=== PATIENT | female | born 1995 | race Caucasian/White ===

== ENCOUNTER 2021-08-15 11:33 | Emergency (ER) | payer BC, SELFPAY ==
[2021-08-15 11:36] VITALS: BP 148/96; PULSE 97; RESP 20; TEMP 36.3; O2SAT 100
--- NOTE | 2021-08-15 11:55 | PC.NURSE ---
RN assisted with DIRECTOR OF [employer] rectal exam.
--- NOTE | 2021-08-15 11:59 | ED.GIBLEED ---
HPI - GI Bleed General Chief complaint: GI Bleed Stated complaint: bloody vagina Time Seen by Provider: 08/15/21 11:51 History of Present Illness HPI Narrative: 25-year-old female presents the emergency room with acute onset of hematochezia. Patient states that she noticed bright red blood on her toilet paper and couple of drops in the toilet after having a bowel movement. Patient denies any rectal pain, or abdominal pain. Patient states she spends 10 to 15 minutes at a time on the toilet when she is having a bowel movement. Related Data Home Medications Medication Instructions Recorded Confirmed doxycycline monohydrate PO 08/15/21 Allergies Allergy/AdvReac Type Severity Reaction Status Date / Time No Known Allergies Allergy Verified 08/15/21 11:42 Review of Systems Review of Systems: CONSTITUTIONAL: Denies fever, chills, or sweats. EYES: Denies visual changes, redness, or discharge. ENT: Denies rhinorrhea, congestion, sore throat, or otalgia. CARDIOVASCULAR: Denies chest pain, palpitations, or edema. RESPIRATORY: Denies cough or dyspnea. GASTROINTESTINAL: Denies abdominal pain, nausea, vomiting, or diarrhea. Reports bright red rectal bleed GENITOURINARY: Denies dysuria or hematuria. SKIN: Denies rash or itching. MUSCULOSKELETAL: Denies back pain, joint pain, or myalgia. NEUROLOGIC: Denies headache, numbness, dizziness, or weakness. PSYCHIATRIC: Denies anxiety or depression. [facility], LAT[facility] Past Medical History Medical History BMI 29.0-29.9,adult BMI 32.0-32.9,adult Dietary counseling and surveillance (10/09/15) Routine physical examination Family History Family History Father Hypertension Hyperlipemia Basal cell carcinoma Mother H/O: hysterectomy Sibling No problems noted. 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 Gender identity (if verbalized by the patient): Female Exam Narrative: GENERAL: Well-appearing, well-nourished, and in no acute distress. HEAD: Normocephalic, atraumatic. EYES: PERRLA and EOMI. ENT: Nares clear, no rhinorrhea or epistaxis. Mucous membranes moist. NECK: Supple. No adenopathy or masses. No carotid bruits or JVD CHEST: Clear to auscultation. No respiratory distress. No wheezes rales or rhonchi HEART: Regular rate and rhythm. No murmur heard. Normal peripheral pulses. ABDOMEN: Soft, nontender, nondistended, normal active bowel sounds. X2 small external hemorrhoids EXTREMITIES: Normal range of motion. No edema. SKIN: Warm, dry, no rash. NEURO: No focal deficits. Alert and oriented x3. PSYCH: Normal mood and affect. Course Vital Signs Vital signs: Vital Signs Temperature 36.3 C L 08/15/21 11:36 Pulse Rate 97 08/15/21 11:36 Respiratory Rate 20 08/15/21 11:36 Blood Pressure 148/96 H 08/15/21 11:36 Pulse Oximetry 100 08/15/21 11:36 Temperature 36.3 C L 08/15/21 11:36 Pulse Rate 97 08/15/21 11:36 Respiratory Rate 20 08/15/21 11:36 Blood Pressure 148/96 H 08/15/21 11:36 Pulse Oximetry 100 08/15/21 11:36 Discharge Plan Discharge Clinical Impression: Hemorrhoids Qualifiers: Hemorrhoid type: unspecified Qualified Code(s): K64.9 - Unspecified hemorrhoids Patient Disposition: Home, Self-Care Condition: Stable Instructions: Antibiotic Form, Hemorrhoids (ED) Additional Instructions: Recommend an [id number] stool softener such as MiraLAX or docusate sodium. Also recommend limiting the amount of time that you use the restroom to no longer than 5 minutes. Prescriptions: Eddie Merino (soheila corey)
[2021-08-15 12:10] LABS: Basophils Percent Auto 0.5 % (0.2-1.2); Eosinophils Absolute Auto 0.2 K/mm3 (0-0.3); Eosinophils Percent Auto 2.2 % (0-4.4); Hematocrit 42.7 % (37.0-47.0); Hemoglobin 14.3 g/dL (12.0-15.0); Immature Granulocyte Absolute 0.01 K/mm3 (0.00-0.031); Immature Granulocyte Percent A 0.1 % (0-0.5); Lymphocytes Absolute Auto 3.39 K/mm3 (0.9-3.2); Lymphocytes Percent Auto 41.7 % (18.3-44.2); Mean Corpuscular HGB Conc 33.5 g/dl (32-36); Mean Corpuscular Hemoglobin 31.4 pg (26-34); Mean Corpuscular Volume 93.6 fl (80-100); Mean Platelet Volume 10.8 fl (7.4-10.4); Monocytes Absolute Auto 0.7 K/mm3 (0.1-0.6); Monocytes Percent Auto 8.4 % (2.6-8.5); Neutrophils Absolute Auto 3.8 K/mm3 (1.3-6.7); Neutrophils Percent Auto 47.1 % (45.5-73.1); Platelet Count Result 274 k/mm3 (150-375); Red Blood Count 4.56 M/mm3 (4.2-5.4); Red Cell Distribution Width 12.6 % (11.5-14.5); White Blood Count 8.1 K/mm3 (4.5-10.0)
[2021-08-15 12:48] VITALS: BP 102/82; PULSE 88; RESP 16; TEMP 36.6; O2SAT 100
== END 2021-08-15 12:48 | disposition home or self-care (01) ==
PROVIDERS: Emergency Medicine; Emergency Provider Nurse Practitioner Family; PCP Family Medicine
DX: K64.9 Unspecified hemorrhoids (principal)
CPT/HCPCS: 36415; 85025; 99283